=== PATIENT | male | born 1945 | race Caucasian/White ===

== ENCOUNTER 2018-04-09 09:18 | Emergency (ER) | payer MEDICARE, OTHER ==
[~2018-04-09] VITALS: Ht 177.8 cm; Wt 109.0 kg
[2018-04-09] MEDS ORDERED: LORazepam 2 mg/ml vial IV ONE (09:40)
[2018-04-09] MEDS ORDERED: normal saline 1000ML IV soln IVB ONE (09:45)
[2018-04-09 09:54] LABS: BASOPHILS # (AUTO) 0.1 X10'3 (0-0.2); BASOPHILS % (AUTO) 0.6 % (0-1); EOSINOPHILS # (AUTO) 0.1 X10'3 (0-0.9); EOSINOPHILS % (AUTO) 0.9 % (0-6); HEMATOCRIT 42.3 % (42.0-52.0); HEMOGLOBIN 14.6 g/dl (14.0-17.9); LYMPHOCYTES # (AUTO) 1.9 X10'3 (1.1-4.8); LYMPHOCYTES % (AUTO) 17.6 % (21-51); MEAN CORPUSCULAR HGB CONC 34.6 % (33.0-36.5); MEAN CORPUSCULAR VOLUME 89.7 FL (78-98); MEAN PLATELET VOLUME 8.1 FL (7.4-10.4); MONOCYTES # (AUTO) 1.1 X10'3 (0-0.9); MONOCYTES % (AUTO) 10.3 % (2-12); NEUTROPHILS # (AUTO) 7.7 X10'3 (1.8-7.7); NEUTROPHILS % (AUTO) 70.6 % (42-75); PLATELET COUNT 136 X10'3 (140-440); RED BLOOD COUNT 4.71 X10'6 (4.70-6.10); RED CELL DISTRIBUTION WIDTH 14.7 % (11.5-14.5)
[2018-04-09 10:10] LABS: PARTIAL THROMBOPLASTIN TIME 25 SECONDS (22-32); PROTHROMBIN TIME 10.4 SECONDS (9.0-12.0)
[2018-04-09 10:25] LABS: ALANINE AMINOTRANSFERASE 122 U/L (12-78); ALBUMIN 3.7 G/DL (3.4-5.0); ALBUMIN/GLOBULIN RATIO 0.9 (1.1-1.5); ALKALINE PHOSPHATASE 75 IU/L (46-116); ANION GAP 16 (8-16); ASPARTATE AMINO TRANSFERASE 235 U/L (10-37); BILIRUBIN,TOTAL 1.1 MG/DL (0.1-1.0); BLOOD UREA NITROGEN 38 MG/DL (7-18); BUN/CREATININE RATIO 33.6 (5.4-32.0); CALCIUM 9.4 MG/DL (8.5-10.1); CHLORIDE 103 MMOL/L (99-107); CREATININE 1.13 MG/DL (0.60-1.10); ETHANOL < 0.010 GM/DL (0.0-0.010); GLUCOSE 189 MG/DL (70-104); POTASSIUM 3.4 MMOL/L (3.5-5.1); SODIUM 139 MMOL/L (135-145); TOTAL CARBON DIOXIDE 20.5 MMOL/L (24-32); TOTAL PROTEIN 7.6 G/DL (6.4-8.2); eGFR 64 ML/MIN
[2018-04-09 14:33] VITALS: BP 127/76
== END 2018-04-09 14:25 | disposition home or self-care (01) ==
LOC: ER 09:19
DX: F15.10 Other stimulant abuse, uncomplicated (principal); E78.00 Pure hypercholesterolemia, unspecified; I10 Essential (primary) hypertension; E11.9 Type 2 diabetes mellitus without complications; G89.29 Other chronic pain; F17.200 Nicotine dependence, unspecified, uncomplicated
CPT/HCPCS: 36415; 80053; 80320; 84484; 85025; 85610; 85730; 93005; 96374; 99285; J7030

== ENCOUNTER 2025-07-24 13:23 | Day surgery (SDC) | payer OTHER ==
--- NOTE | 2025-07-23 16:01 | ELECTROCARDIOGRAPH REPORT ---
[facility] Test Date: 2025-07-23 Test Time: 15:59:35 Pat Name: TEMO WILKES Department: [facility]-PRE-OP Patient ID: [id number] Room: Gender: M Housekeeper Nanny: TRISTAN : 1945 Requested By: CHRISTA LUU Order Number: [id number] Reading MD: Dr. MAC Kaye Measurements Intervals [place] Rate: 60 P: 0 NM: 140 QRS: 28 QRSD: 149 T: 48 QT: 436 QTc: 436 Interpretive Statements Normal sinus rhythm versus Atrial-paced complexes Right bundle branch block Electronically Signed On 07-23-2025 16:08:[address] MAC Kaye Please click the below link to view image of tracing.
[2025-07-23 16:31] LABS: MEAN PLATELET VOLUME 8.8 FL (7.4-10.4); PRE OP HEMATOCRIT 37.5 % (42.0-52.0); PRE OP HEMOGLOBIN 12.9 g/dL (14.0-17.9); PRE OP PLATELET COUNT 165 X10'3 (140-440); PRE OP WHITE BLOOD COUNT 10.5 10'3 (4.8-10.8); RED CELL DISTRIBUTION WIDTH 14.5 % (11.5-14.5)
[2025-07-23 16:54] LABS: CREATININE 1.63 MG/DL (0.60-1.10); PRE OP ALT 44 U/L (30-65); PRE OP ANION GAP 7 (8-16); PRE OP AST 22 U/L (10-37); PRE OP BILIRUB, TOTAL 0.3 MG/DL (0.0-1.0); PRE OP GLUCOSE 105 MG/DL (70-104); PRE OP POTASSIUM 4.3 MMOL/L (3.4-5.1); PRE OP SODIUM 138 MMOL/L (135-145); TOTAL CARBON DIOXIDE 28.1 MMOL/L (24-32); eGFR 41 ML/MIN
[2025-07-24] VITALS (10 sets, daily range): BP systolic 128–172; BP diastolic 68–86; PULSE 60–105; RESP 12–17; TEMP 96.8; O2SAT 76–100
[~2025-07-24] VITALS: Ht 177.8 cm; Wt 96.9 kg
[2025-07-24] MEDS: ceFAZolin 2gm/dext,iso 50mL 50 ML IV ONE (05:30)
[~2025-07-24 13:23] MED LIST: BUSP10TA3 PO; CYCL-394 PO; DOCU-337 PO; GLIM4TAB7 PO; LAMO100T2 PO; LOSA-415 PO; METF-1203 PO; MIRT-92 PO; OLAN5TAB29 PO; ROSU10TA72 PO; SITA50TA14 PO; TAMS-55 PO; TRAZ150T78 PO; VENL75TA4 PO
[2025-07-24] MEDS: ringers solution, lacted 1,000 ML IV SCH (14:23)
[2025-07-24] MEDS ORDERED: fentaNYL/PF 50MCG/1 ML 2ML syringe ONE (15:18)
[2025-07-24] MEDS ORDERED: midazolam 1 mg/ML 2ml injection ONE (15:20)
[2025-07-24] MEDS ORDERED: propofol inj 20 ML IV ONE ×2 (15:23)
[2025-07-24] MEDS: LIDOcaine 1% 30ml preserv. free vial IJ ONE (15:26)
[2025-07-24] MEDS: BUPIVAcaine/PF 2.5 mg/ml (0.25%) 30ml vial IJ ONE (15:26)
[2025-07-24] MEDS ORDERED: BUPIVAcaine 2.5mg/ml inj 50ml vial (contains preservative) ONE (15:38)
[2025-07-24] MEDS ORDERED: LIDOcaine 1% 30ml preserv. free vial ONE (15:38)
[2025-07-24] MEDS ORDERED: morphine 4 MG/ML inj SYRINge IV PRN ×2 (16:10)
[2025-07-24] MEDS ORDERED: hydrALAZINE 20mg/ml inj. IV PRN (16:10)
[2025-07-24] MEDS ORDERED: ringers solution, lacted 1,000 ML IV SCH (16:10)
[2025-07-24] MEDS ORDERED: ondansetron/PF 4mg/2ml inj IV PRN (16:10)
[2025-07-24] MEDS ORDERED: labetalol 20mg/4ml (5mg/ml) syringe IV PRN (16:10)
[2025-07-24] MEDS ORDERED: HYDROmorphone/PF 0.2 MG/ML SYRINGE IV PRN ×2 (16:10)
[2025-07-24] MEDS ORDERED: acetaminophen 1,000mg/100ml IV 100 ML IV PRN (16:10)
[2025-07-24] MEDS ORDERED: HYDROcodone/acetaminophen 5mg/325mg tablet PO PRN (16:15)
--- NOTE | 2025-07-24 16:25 | OPERATIVE REPORT ---
Operative Report Providers to CC CC: NILESH LUU MD ~ Date of Procedure: Jul 24, 2025 Pre-Operative Diagnosis: Left arm neoplasm Post-Operative Diagnosis 1.5 cm left arm neoplasm Procedure Performed Excision of 1.5 cm left arm neoplasm with margins Surgeon: Nilesh Luu MD FACS [employer] None Anesthesiologist: Missy Veloz Type of Anesthesia: Other (Monitored anesthesia care) Findings: Neoplasm most consistent with malignancy such as basal cell carcinoma measuring 1.5 cm with five mm circumferential gross margins Short stitch on the proximal margin and long stitch on the lateral margin Wound Class I Complications None Prosthetics\Implants used: None Estimated Blood Loss: 5 cc Specimen Removed: Left arm lesion/neoplasm most consistent clinically with a basal cell carcinoma Description of Procedure: Patient was brought to the operating room and identified by the nursing staff and the attending physician. Patient was placed supine with the left arm out. General anesthesia was induced. Preoperative antibiotics were given. The left arm was prepped and draped in the standard sterile fashion. There was a visible ulcerated lesion about 1.5 cm in diameter at the lateral aspect of the elbow/proximal forearm. 5 mm medial and lateral margins were marked. This measured approximately 2.5 cm in diameter. Local anesthetic was infiltrated. A 7 x 2-1/2 cm ellipse was then created longitudinally, centered at the lesion. Full-thickness dermis was excised. There was no evidence of deeper invasion of the lesion. Proximal and lateral margins were marked with a silk suture and the specimen was passed off the field. Hemostasis was assured. Dermal edges were reapproximated with interrupted 3-0 Vicryl sutures and skin was closed with interrupted nylon sutures. Dressings were applied. Patient was awakened and taken to the postanesthesia care unit in stable condition. Counts repoted as correct: Yes NILESH LUU MD Jul 24, 2025 16:25
--- NOTE | 2025-07-25 16:43 | PATHOLOGY REPORT ---
[facility] [address] [place] [address] SURGICAL PATHOLOGY REPORT CaseNumber: [id number] Surgeon:Nilesh Mora M.D. CLINICAL INFORMATION CLINICAL INFORMATION: Neoplasm. DIAGNOSIS DIAGNOSIS: SKIN, LEFT ARM; EXCISION - INVASIVE SQUAMOUS CELL CARCINOMA, KERATOACANTHOMA TYPE. - THE SURGICAL MARGINS ARE CLEAR. MICROSCOPIC DESCRIPTION MICROSCOPIC DESCRIPTION: Invasive squamous cell carcinoma is greater than 1 cm to the nearest peripheral surgical margin. GROSS DESCRIPTION GROSS DESCRIPTION: Received in a container of formalin labeled with the patient's name, number, and "left arm neoplasm" is an oriented ellipse of leung skin which measures 4 x 1.5 x 0.6 cm. There are sutures found marking the proximal end lateral aspects of the ellipse. The suture found marking the max imal aspect is designated 12 o'clock and the suture found marking the lateral aspect is designated 3 o'clock. The 12-3-6 oclock margin is marked blue, the remaining margins are marked black, and the specimen is horizontally sectioned and sequentially submitted in its entirety from 12-6 oclock as A1-A6.The time at which the specimen was removed was 1545. The time at which the specimen was placed in formalin was 1550. (nhb) Electronically signed by: Shawn Lindo, 07/25/2025 4:07:00 PM
== END 2025-07-24 17:30 | disposition home or self-care (01) ==
LOC: PAS 13:23
PROVIDERS: ATTEND Surgery
DX: D23.62 Other benign neoplasm of skin of left upper limb, including shoulder (principal); Z79.899 Other long term (current) drug therapy; G47.33 Obstructive sleep apnea (adult) (pediatric); I10 Essential (primary) hypertension; E11.9 Type 2 diabetes mellitus without complications; Z95.0 Presence of cardiac pacemaker; Z90.49 Acquired absence of other specified parts of digestive tract; F41.9 Anxiety disorder, unspecified; F31.9 Bipolar disorder, unspecified; Z88.8 Allergy status to other drugs, medicaments and biological substances; F43.10 Post-traumatic stress disorder, unspecified; N40.0 Benign prostatic hyperplasia without lower urinary tract symptoms; Z83.3 Family history of diabetes mellitus; Z82.49 Family history of ischemic heart disease and other diseases of the circulatory system
CPT/HCPCS: 11603; 36415; 80053; 82948; 85025; 93005; A6222; J2003; J2250; J2704; J3010; J3490; J7030; J7120; Z7506; Z7512; A4215; A4618; A6446; A6449; A6455; A7000